=== PATIENT | female | born 2000 | race Caucasian/White ===

== ENCOUNTER 2022-02-20 12:26 | Emergency (ER) | payer BC, SELFPAY ==
[2022-02-20 13:05] VITALS: BP 127/81; PULSE 59; RESP 16; TEMP 37.4; O2SAT 98
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
[2022-02-20 16:47] LABS: Basophils % 0.4 %; Hematocrit 43.2 % (37.0-47.0); Hemoglobin 14.4 g/dL (11.5-15.3); Lymphocytes # 1.7 10^3/uL (0.8-4.8); Lymphocytes % 21.4 %; Mean Corpuscular HGB Conc 33.3 g/dL (30.0-36.0); Mean Corpuscular Hemoglobin 31.9 pg (28.0-34.0); Mean Corpuscular Volume 95.8 fl (81-99); Mean Platelet Volume 10.2 fL (7.4-10.4); Monocytes # 0.6 10^3/uL (0.2-0.9); Monocytes % 7.3 %; Neutrophils # 5.64 10^3/uL (1.8-7.7); Neutrophils % 70.6 %; Nucleated Red Blood Cells % 0 %; Platelet Count 224 10^3/cmm (130-400); Red Blood Count 4.51 10^6/uL (4.1-5.3); Red Cell Distribution Width 11.9 % (12.1-15.1)
--- NOTE | 2022-02-20 17:25 | PC.NURSE ---
ATTEMPTED TO ADM MEDICATION PT IS NO LONGER IN ROOM.
[2022-02-20 17:39] LABS: Alanine Aminotransferase 9 U/L (0-33); Albumin Level 4.4 g/dL (3.5-5.2); Alkaline Phosphatase 57 U/L (35-105); Anion Gap 16.3 (5-19); Aspartate Amino Transferase 9 U/L (0-32); Blood Urea Nitrogen 10 mg/dL (6-20); Calcium 9.5 mg/dL (8.5-10.5); Carbon Dioxide 25 mmol/L (22-29); Chloride 106 mmol/L (98-107); Globulin 3.2 g/dL (1.3-4.6); Glomerular Filtration Rate 123.9 mL/min (90-130); Glucose 80 mg/dL (65-115); Osmolality Calculated 294 mOsm/kg (285-295); Potassium 4.3 mmol/L (3.5-5.1); Sodium 143 mmol/L (136-145); Thyroid Stimulating Hormone 1.63 uIU/mL (0.27-4.20); Total Bilirubin 0.6 mg/dL (0.15-1.2); Total Protein 7.6 g/dL (6.6-8.7)
== END 2022-02-20 17:33 | disposition left against medical advice (07) ==
PROVIDERS: Nurse Practitioner Family; Emergency Provider Nurse Practitioner Family
DX: F41.9 Anxiety disorder, unspecified (principal); Z53.21 Procedure and treatment not carried out due to patient leaving prior to being seen by health care provider
CPT/HCPCS: 36415; 80053; 84443; 85025

== ENCOUNTER → 2023-05-28 15:01 | Outpatient (BNVA) | payer BC, SELFPAY | PROVIDERS: Visit Provider Family Medicine | DX: M54.2 Cervicalgia (principal); G89.29 Other chronic pain | CPT/HCPCS: 80053; 84443; 85025; 85651; 86140 ==

== ENCOUNTER → 2024-01-02 13:30 | Outpatient (BNVA) | payer BC, SELFPAY | PROVIDERS: Visit Provider Family Medicine | DX: Z01.818 Encounter for other preprocedural examination (principal); M25.512 Pain in left shoulder | CPT/HCPCS: 80048; 81025; 85025 ==

== ENCOUNTER 2024-02-10 06:00 | Outpatient (RCR) | payer BC, SELFPAY | END 2024-02-29 23:59 | disposition home or self-care (01) | LOC: MPT 06:00 | PROVIDERS: Visit Provider Orthopaedic Surgery | DX: Z98.890 Other specified postprocedural states (principal) | CPT/HCPCS: 97110; 97140; 97161 ==

== ENCOUNTER 2024-03-01 06:00 | Outpatient (RCR) | payer BC, SELFPAY | END 2024-03-31 23:59 | disposition home or self-care (01) | LOC: MPT 06:00 | PROVIDERS: Visit Provider Orthopaedic Surgery | DX: Z98.890 Other specified postprocedural states (principal) | CPT/HCPCS: 97110; 97140 ==

== ENCOUNTER 2024-04-01 06:30 | Outpatient (RCR) | payer BC, SELFPAY | END 2024-05-01 23:59 | disposition home or self-care (01) | LOC: MPT 06:30 | PROVIDERS: Visit Provider Orthopaedic Surgery | DX: Z98.890 Other specified postprocedural states (principal) | CPT/HCPCS: 97110; 97140 ==

== ENCOUNTER → 2024-04-29 16:15 | Outpatient (BNVA) | payer BC, SELFPAY | PROVIDERS: Visit Provider Nurse Practitioner | DX: R05.9 Cough, unspecified (principal) | CPT/HCPCS: 87400; 87426 ==

== ENCOUNTER 2024-09-29 05:00 | Outpatient (RCR) | payer OTHER, SELFPAY | END 2024-10-29 23:59 | disposition home or self-care (01) | LOC: MPT 05:00 | PROVIDERS: Visit Provider Orthopaedic Surgery | DX: M75.02 Adhesive capsulitis of left shoulder (principal) | CPT/HCPCS: 97110; 97140; 97161; G0283 ==

== ENCOUNTER 2024-10-30 04:00 | Outpatient (RCR) | payer OTHER, SELFPAY | END 2024-11-29 23:59 | disposition home or self-care (01) | LOC: MPT 04:00 | PROVIDERS: Visit Provider Orthopaedic Surgery | DX: M75.02 Adhesive capsulitis of left shoulder (principal) | CPT/HCPCS: 97110; 97140 ==

== ENCOUNTER 2024-11-23 18:20 | Emergency (ER) | payer BC, MEDICAID, SELFPAY ==
[2024-11-23 18:27] VITALS: BP 155/77; PULSE 78; RESP 17; TEMP 36.7; O2SAT 100; BMI 24.7
--- OUTSIDE RECORDS SUMMARY | 2024-11-23 18:32 | XMS_ITS | Clinical Summary ---
Author Organization [facility] [employer] Address [address] [place] [address] Care Team Providers Care Assistant Engineer Name Role Phone None, Physician Primary Care Provider Unavailabl e Source Comments [facility] [employer],non-owned Affiliates and Associated Physician Practices is amultiple site organization consisting of ambulatory clinics and hospital sitesin [place], [place], [place] and [place]. This disclosure is being madepursuant to the Care Everywhere program and may not contain all information available regarding this patient. Last updated 17.[facility] [employer] Allergies Active Allergy Reactions Criticality Noted Date Comments Cefdinir Urticaria Medium 09/16/2023 Medications * Be aware that medications may not be up to date on this document. Alwaysverify current medications with the patient. clonazePAM (KlonoPIN) 0.5 MG tablet Take 1 (one) tablet by mouth 3 times daily 4 Active onabotulinumtoxin A (Botox) 200 units injectionIndicati ons:Axillary Hyperhidrosis 200 (two hundred) Units by Intradermal route Every 90 days As needed for excessive sweating. Injections to be performed in providers office. 200 units needed for efficacy and duration. Reasons: Excessive or Profuse Sweating From the Armpits 1 Each 3 5 Active Active Problems Problem Noted Date Diagnosed Date Primary focal hyperhidrosis, unspecified 024 Encounters Date Type Department Care Team Description 10/14/2024 Coordination of Care Telephone [facility] - Cosmetic Dermatology [address] [place] [address] Anny Coppola [employer]PORTS DEVELOPER-TOP CLEANER 09/23/2024 Telephone [facility] - Cosmetic Dermatology [address], [address] [place] [address] Anny Coppola, [employer] RE[employer] DEVELOPER-TOP CLEANER Hyperhidrosis from Last 3 Months Family History Medical History Relation Name Comments Cancer - Skin, Non Melanoma Father Cancer - Skin, Melanoma Neg Hx Relation Name Status Comments Father Social History Tobacco Use Types Packs/Day Years Used Date Smoking Tobacco: Never Smokeless Tobacco: Never Tobacco Cessation:Counseling Given: Not Answered Alcohol Use Standard Drinks/Week Comments Not Currently 0 (1 standard drink = 0.6 oz pur e alcohol) rarely Comments Unknown Sex and Gender Information Value Date Recorded Sex Assigned at Not on file Legal Sex Female 1:06 PM CDT Gender Identity Not on file Sexual Orientation Not on file Plan of Treatment Health Maintenance Due Date Last Done Comments HIV SCREENING 2013 HPV VACCINE (1 - 3-dose series) 2013 HEPATITIS C SCREENING 04/03/2016 DTAP/TDAP/TD VACCINES (1 - Tdap) 2017 HEPATITIS B VACCINE (1 of 3 - 19+ 3-dose series) 2017 PAP SMEAR 2019 COVID-19 VACCINE (1 - 2023-2 5 season) 2023 DEPRESSION SCREENING 04/01/2024 INFLUENZA VACCINE (#1) 2024 ZOSTER VACCINE (1 of 2) 2048 HIB VACCINE Aged Out No longer eligi ble based on patient's age to complete this topic MENINGOCOCCAL (Group B) VACC INE SHARED DECISION-MAKING Aged Out No longer eligibl e based on patient's age to complete this topic MENINGOCOCCAL GROUPS A/C/Y/W VACCINE Aged Out No longer eligible b ased on patient's age to complete this topic PNEUMOCOCCAL VACCINE Aged Out No long er eligible based on patient's age to complete this topic Insurance MEDICAID RENE ROUSSEAU Care Teams Assistant Engineer Relationship Specialty Start Date End Date None, Physician [address] [place] [address] PCP - General 10/28/23
--- OUTSIDE RECORDS SUMMARY | 2024-11-23 18:32 | XMS_ITS | Encounter Summary ---
Author Organization [facility] Address [address] [place] [address] Care Team Providers Care Unemployment Insurance Director Name Role Phone None, Physician Primary Care Provider Unavailabl e Encounter Details Date Type Department Care Team (Late st Contact Info) Description 09/17/2023 Telephone [facility] - Dermatology [address] [place] [id number] Genia Barnhart MD [address] [facility] [place] [address] Social History Tobacco Use Types Packs/Day Years Used Date Smoking Tobacco: Never Assessed Comments Unknown Sex and Gender Information Value Date Recorded Sex Assigned at Not on file Legal Sex Female 1:06 PM CDT Gender Identity Not on file Sexual Orientation Not on file documented as of this encounter Plan of Treatment Not on file documented as of this encounter Visit Diagnoses Not on filedocumented in this encounter Care Teams Unemployment Insurance Director Relationship Specialty Start Date End Date None, Physician [facility] [place] [address] PCP - General 10/28/23 documented as of this encounter
--- OUTSIDE RECORDS SUMMARY | 2024-11-23 18:32 | XMS_ITS | Encounter Summary ---
Author Organization [facility] Address [address] [place] [address] Care Team Providers Care Grinder Operator Surface Tool Name Role Phone None, Physician Primary Care Provider Unavailabl e Encounter Details Date Type Department Care Team (Late st Contact Info) Description 10/23/2023 Telephone [facility] - Dermatology [address] [place] [phone] None, Physician [address] [place] [address] Social History Tobacco Use Types Packs/Day Years Used Date Smoking Tobacco: Never Assessed Comments Unknown Sex and Gender Information Value Date Recorded Sex Assigned at Not on file Legal Sex Female 1:06 PM CDT Gender Identity Not on file Sexual Orientation Not on file documented as of this encounter Miscellaneous Notes * Telephone Encounter - Stanton Ramsay - 10/23/2023 11:06 AM CDT Contact [facility]. Rep Sukhi Darby (Rep # [id number]). Rep informed me that medication (Botox) does not need authorization. Medication sent to location. Pt will be informed when med arrives. documented in this encounter Plan of Treatment Not on file documented as of this encounter Visit Diagnoses Not on filedocumented in this encounter Care Teams Grinder Operator Surface Tool Relationship Specialty Start Date End Date None, Physician [address] [place] [address] PCP - General 10/28/23 documented as of this encounter
--- NOTE | 2024-11-23 18:35 | W.ED.ABDPA2 ---
HPI - Abdominal Pain General: Chief Complaint: Abdominal Pain Stated Complaint: Gall Bladder Problems Time Seen by Provider: 11/23/24 18:32 History of Present Illness: Patient is a 24-year-old female with history of gallbladder attacks reports ED with 3 days of nausea, vomiting, right upper quadrant pain, radiates to right shoulder and hip. Pain is sharp and stabbing in nature in the right upper quadrant. This is worse than normal. She did have an ultrasound scheduled at [facility] in [facility] days, however the pain was so severe and unable to hold down any intake. No antiemetics. No fevers. No shortness of breath. No alcohol intake yesterday, and does not really consume alcohol. Patient then relates that prior to arrival, she obtained chili, and half a chicken sandwich at [employer]. Associated Symptoms: Reports nausea and vomiting; Denies chills and fever(s) Related Data Previous Rx's ?Medication ?Instructions ?Recorded diclofenac sodium 1 % topical gel 4 g topical QID PRN pain #100 grams 08/06/23 (Voltaren Arthritis Pain) lidocaine 5 % topical patch 3 patch topical DAILY #90 ea 08/28/23 albuterol sulfate 90 mcg/actuation 2 puff inhalation Q6H PRN 04/29/24 aerosol inhaler shortness of breath or wheezing #8.5 grams metformin 500 mg tablet 500 mg PO DAILY 30 days #30 tabs 06/25/24 clonazepam 0.5 mg tablet 0.5 mg PO BID PRN anxiety 30 days 07/17/24 #60 tabs ciprofloxacin HCl 500 mg tablet 500 mg PO Q8H 10 days #30 tabs 11/23/24 Allergies Allergy/AdvReac Type Severity Reaction Status Date / Time azithromycin (From Zithromax Allergy ALGY-Hives Verified 11/23/24 18:30 Z-Francisco Javier) cefdinir (From Omnicef) Allergy ALGY-Hives Verified 11/23/24 18:30 Review of Systems General: Reports: 10 or more systems reviewed and unremarkable except in HPI and below Const: Reports: change in appetite and fatigue; Denies: fever(s) or chills Eyes: Denies: change in vision or blurry vision ENMT: Denies: throat pain or mouth pain Card: Denies: chest pain or palpitations Resp: Denies: dyspnea or non-productive cough GI: Reports: abdominal pain, nausea and vomiting : Denies: flank pain, difficulty voiding, urinary urgency or urinary hesitancy Musc: Denies: neck pain, back pain or extremity pain Skin/Breast: Denies: rash or pruritus Neuro: Denies: headache(s) or numbness in extremities Psych: Denies: anxiety or depression PFS ED PFSH: Medical History (Updated 11/23/24 @ 21:32 by KEVIN Cheng) Factor V Leiden PCOS (polycystic ovarian syndrome) Social History Smoking and tobacco/nicotine status: never used tobacco/nicotine Second hand smoke exposure: Yes Alcohol intake: current Alcohol intake frequency: holidays/special occasions only Alcohol type: other Substance/Drug Use: never Adopted: No Caregiver/support person: No Household members: none Housing: Apartment Marital status: Single Number of children: 0 Highest education level completed: High School Graduate service: No Current occupational status: employed Current occupational exposures/hazards: No Pets and animals: Yes Leisure activites: volunteer work Sexually active: Yes Do you think of yourself as: Straight/Heterosexual Current gender identity: Female Special luis antonio needs: No Agree to transfusion: Yes Female Reproductive History: Spontaneous abortions: No Physical Exam Const: COMMON NORMALS: no acute distress, average body habitus and patient oriented x3 HENMT: COMMON NORMALS: normocephalic and atraumatic HEAD & SCALP: normocephalic and atraumatic Lymph: LYMPHATIC: no lymphadenopathy noted Chest: COMMONS NORMALS: normal inspection of the chest, normal palpation of entire chest wall and normal palpation of the breasts BREAST/AXILLA PALPATION: Yes normal palpation of the breasts Resp: COMMON NORMALS: normal respiratory effort, No retractions and clear to auscultation bilaterally AUSCULTATION: clear to auscultation bilaterally Cardio: COMMON NORMALS: regular rate and regular rhythm RATE: regular rate RHYTHM: regular rhythm GI: COMMON NORMALS: Normal to inspection, nondistended, normoactive bowel sounds present, Soft to palpation and non-tender PALPATION: Yes Soft to palpation : COMMON NORMALS: Yes no CVA tenderness BLADDER/KIDNEY EXAM: Yes no CVA tenderness Back/Pelvis: COMMON NORMALS: no CVA tenderness Extremity: COMMON NORMALS: normal to inspection, full ROM and capillary refill normal Neuro: COMMON NORMALS: patient oriented x3 Psych: COMMON NORMALS: mental status grossly normal, Normal thought process present, cooperative and normal affect THOUGHT PROCESS: Normal thought process present Course Vital Signs: Vital signs: Vital Signs Temperature 98.1 F 11/23/24 18:27 Pulse Rate 82 11/23/24 23:09 Respiratory Rate 17 11/23/24 18:27 Blood Pressure 130/66 11/23/24 23:09 Pulse Oximetry 100 11/23/24 23:09 Oxygen Delivery Me thod Room Air 11/23/24 18:27 MDM - Abdominal Pain Medical Decision Making Patient is a 24-year-old female, presents to the emergency room with 3 days of increasing pain to right upper quadrant. She was awaiting ultrasound with [facility] for questionable cholecystitis. She had throbbing stabbing pain. Laboratory data, is supportive of UTI. CT shows ill-defined lesion of the right mid to upper kidney measuring up to 17 mm consider nonemergent MR renal lesion protocol for further characterization. This can be done on an outpatient basis. Lab Data 11/23/24 18:40 11/23/24 18:40 Labs/Radiology: Radiology Impressions Gallbladder Ultrasound 11/23/24 18:54 IMPRESSION: No acute findings. Abdomen/Pelvis CT 11/23/24 20:00 IMPRESSION: 1. Ill-defined lesion of the right mid to upper kidney, measuring up to 17 mm, consider nonurgent MR renal lesion protocol for further characterization. 2. Enlarged left adnexa up to 3.8 cm with ring enhancing structure suggesting possible corpus luteal cyst. Trace dependent free fluid in the pelvis, possibly physiologic although could be related to ruptured cyst. Consider ultrasound for further characterization. COMMENTS: Consistent with the [employer]'s Incidental Findings Committee white paper (J Am Claus Radiol 2018): Any incidental renal lesion less than 1 cm or classified as too small to characterize, or any incidental cystic renal lesion characterized as simple-appearing, is likely benign. No follow-up imaging is recommended for these lesions per consensus recommendations based on imaging criteria. Laboratory Results WBC 7.97 10^3/uL (3.29-11.43) 11/23/24 18:40 RBC 4.21 10^6/uL (3.85-5.65) 11/23/24 18:40 Hgb 12.90 g/dL (11.27-16.99) 11/23/24 18:40 Hct 40.4 % (36-47) 11/23/24 18:40 MCV 96.0 fl (85-98) 11/23/24 18:40 MCH 30.6 pg (27-33) 11/23/24 18:40 MCHC 31.9 g/dL (30-55) 11/23/24 18:40 RDW 12.3 % (12.1-15.1) 11/23/24 18:40 Plt Count 253 10^3/cmm (157-399) 11/23/24 18:40 MPV 9.5 fL (7.4-10.4) 11/23/24 18:40 Neut % (Auto) 64.2 % 11/23/24 18:40 Lymph % (Auto) 20.3 % 11/23/24 18:40 [place] % (Auto) 14.1 % 11/23/24 18:40 Eos % (Auto) 1.0 % 11/23/24 18:40 Baso % (Auto) 0.3 % 11/23/24 18:40 Neut # (Auto) 5.12 10^3/uL (1.8-7.7) 11/23/24 18:40 Lymph # (Auto) 1.6 10^3/uL (0.8-4.8) 11/23/24 18:40 [place] # (Auto) 1.1 10^3/uL (0.2-0.9) H 11/23/24 18:40 Eos # (Auto) 0.1 10^3/uL (0.0-0.8) 11/23/24 18:40 Baso # (Auto) 0.0 10^3/uL (0.0-0.1) 11/23/24 18:40 Nucleated RBC % (auto) 0 % 11/23/24 18:40 Nucleated RBCs # 0.0 /100WBC 11/23/24 18:40 Sodium 139 mmol/L (136-145) 11/23/24 18:40 Potassium 3.7 mmol/L (3.5-5.1) 11/23/24 18:40 Chloride 102 mmol/L (98-107) 11/23/24 18:40 Carbon Dioxide 27 mmol/L (22-29) 11/23/24 18:40 Anion Gap 13.7 (5-19) 11/23/24 18:40 BUN 8 mg/dL (6-20) 11/23/24 18:40 Creatinine 0.6 mg/dL (0.5-0.9) 11/23/24 18:40 GFR Calculation 120.8 mL/min (90-130) 11/23/24 18:40 Glucose 60 mg/dL (65-115) L 11/23/24 18:40 POC Glucose 81 mg/dL (70-110) 11/23/24 20:21 Calculated Osmolality 284 mOsm/kg (285-295) L 11/23/24 18:40 Lactic Acid 1.6 mmol/L (0.5-2.2) 11/23/24 18:40 Calcium 8.8 mg/dL (8.5-10.5) 11/23/24 18:40 Total Bilirubin 0.3 mg/dL (0.15-1.2) 11/23/24 18:40 AST 11 U/L (0-32) 11/23/24 18:40 ALT 10 U/L (0-33) 11/23/24 18:40 Alkaline Phosphatase 62 U/L (35-105) 11/23/24 18:40 Total Protein 7.4 g/dL (6.6-8.7) 11/23/24 18:40 Albumin 4.1 g/dL (3.5-5.2) 11/23/24 18:40 Globulin 3.3 g/dL (1.3-4.6) 11/23/24 18:40 Lipase 22 U/L (13-60) 11/23/24 18:40 HCG, Qual Negative (Negative) 11/23/24 20:17 Urine Color Yellow (Yellow) 11/23/24 20:17 Urine Appearance Cloudy (CLEAR) A 11/23/24 20:17 Urine pH 6.5 (5-7) 11/23/24 20:17 Ur Specific [place] 1.015 (1.005-1.030) 11/23/24 20:17 Urine Protein Negative (Negative) 11/23/24 20:17 Urine Glucose (UA) Negative (Normal) 11/23/24 20:17 Urine Ketones Trace (Negative) 11/23/24 20:17 Urine Blood Negative (Negative) 11/23/24 20:17 Urine Nitrate Negative (Negative) 11/23/24 20:17 Urine Bilirubin Negative (Negative) 11/23/24 20:17 Urine Urobilinogen 2.0 mg/dL (Negative) H 11/23/24 20:17 Ur Leukocyte Esterase 2+ (Negative) A 11/23/24 20:17 Urine RBC 0-2 /hpf (0-2) 11/23/24 20:17 Urine WBC 21-50 /hpf (0-5) H 11/23/24 20:17 Ur Squamous Epith Cells 0-5 /hpf (0-5) 11/23/24 20:17 Amorphous Sediment Not Reportable 11/23/24 20:17 Urine Bacteria 4+ /hpf (NONE) H 11/23/24 20:17 Hyaline Casts 1.21 /lpf 11/23/24 20:17 All radiology interpretation(s) finalized by discharge Discharge Plan Discharge Patient Disposition: Home Clinical Impression: Pyuria, Lesion of right [place] kidney Condition: Stable Prescriptions: New ciprofloxacin HCl 500 mg tablet 500 mg PO Q8H 10 Days Qty: 30 0RF No Action lidocaine 5 % adhesive patch,medicated 3 patch topical DAILY Qty: 90 11RF Rx Instructions: leave on most painful area for up to 12 hrs albuterol sulfate 90 mcg/actuation HFA aerosol inhaler 2 puff inhalation Q6H PRN (Reason: shortness of breath or wheezing) Qty: 8.5 0RF metformin 500 mg tablet 500 mg PO DAILY 30 Days Qty: 30 5RF diclofenac sodium [Voltaren Arthritis Pain] 1 % gel 4 g topical QID PRN (Reason: pain) Qty: 100 0RF Rx Instructions: to neck clonazepam 0.5 mg tablet 0.5 mg PO BID PRN (Reason: anxiety) 30 Days Qty: 60 0RF Rx Instructions: Please allow reyes pay Discharge Orders: Discharge ED (Routine); Ordered 11/23/24 Ordered By: Deborah Mckenzie Discharge Diet: Clear Liquid Patient Instructions: Urinary Tract Infection in Women (ED), Patient Portal & K[facility]on Instructions Activity Restrictions/Additional Instructions: Your antibiotics were sent to the pharmacy. You have had your antibiotics today, however this will need to be obtained early in the morning and taken 3 times a day. Take probiotic or active culture yogurt to avoid infectious diarrhea. You have a incidental finding of 17 mm lesion of the right mid to upper kidney that is recommended for nonemergent MRI through your primary care. Please return to ED with worsening pain, temperature greater 100.4 ?F. You will need to follow-up with your primary care physician regarding the nonemergent MRI, as well as today's visit, and any further discovery with your right upper quadrant pain as we discussed and any additional testing as they would need to order this. Print Language: Burkinan Coding Level of Care Code ED Cost Control Specialist for Jamin Danielle
[2024-11-23 18:45] LABS: Hematocrit 40.4 % (36-47); Hemoglobin 12.90 g/dL (11.27-16.99); Mean Corpuscular HGB Conc 31.9 g/dL (30-55); Mean Corpuscular Hemoglobin 30.6 pg (27-33); Mean Corpuscular Volume 96.0 fl (85-98); Nucleated Red Blood Cells % 0 %; Platelet Count 253 10^3/cmm (157-399); Red Blood Count 4.21 10^6/uL (3.85-5.65); White Blood Count 7.97 10^3/uL (3.29-11.43)
[2024-11-23] MEDS: orphenadrine 30 mg/mL Inj 2 mL 60 MG IV (18:49)
[2024-11-23] MEDS: ondansetron 2 mg/ML SDV 2 mL 4 MG IVP (18:49)
--- NOTE | 2024-11-23 18:54 | USR_ITS ---
PROCEDURE INFORMATION: Exam: US Abdomen, Limited; Right Upper Quadrant Exam date and time: 11/23/2024 7:35 PM Age: 24 years old Clinical indication: Abdominal pain; Epigastric; Additional info: Positive orlando's, right upper quadrant abdominal pain TECHNIQUE: Imaging protocol: Real time ultrasound of the abdomen with image documentation. Limited exam focused on the right upper quadrant. COMPARISON: No relevant prior studies available. FINDINGS: Liver: Normal. No masses. Gallbladder: Normal. No gallstones. There is no gallbladder wall thickening. Biliary ducts: Normal. No stones. No dilation. Pancreas: Visualized pancreas is unremarkable. Right kidney: Normal. No mass. No hydronephrosis. US/US gall bladder [id number] IMPRESSION: No acute findings.
[2024-11-23] MEDS: LORazepam 1 MG/0.5 ML injection 0.5 MG IVP (18:58)
[2024-11-23 19:06] LABS: Alanine Aminotransferase 10 U/L (0-33); Albumin Level 4.1 g/dL (3.5-5.2); Alkaline Phosphatase 62 U/L (35-105); Anion Gap 13.7 (5-19); Aspartate Amino Transferase 11 U/L (0-32); Blood Urea Nitrogen 8 mg/dL (6-20); Calcium 8.8 mg/dL (8.5-10.5); Carbon Dioxide 27 mmol/L (22-29); Chloride 102 mmol/L (98-107); Creatinine Clr Calc Pharmacy 132.2209; Globulin 3.3 g/dL (1.3-4.6); Glucose 60 mg/dL (65-115); Lipase 22 U/L (13-60); Osmolality Calculated 284 mOsm/kg (285-295); Potassium 3.7 mmol/L (3.5-5.1); Sodium 139 mmol/L (136-145); Total Protein 7.4 g/dL (6.6-8.7)
[2024-11-23 19:07] LABS: Lactic Sepsis W/Reflex 1.6 mmol/L (0.5-2.2)
--- NOTE | 2024-11-23 20:00 | CTR_ITS ---
PROCEDURE INFORMATION: Exam: CT Abdomen And Pelvis With Contrast Exam date and time: 11/23/2024 8:32 PM Age: 24 years old Clinical indication: Abdominal pain; Localized; Right upper quadrant (ruq); C/O ruq pain. Negative gb ultrasound. TECHNIQUE: Imaging protocol: Computed tomography of the abdomen and pelvis with contrast. Radiation optimization: All CT scans at this facility use at least one of these dose optimization techniques: automated exposure control; mA and/or kV adjustment per patient size (includes targeted exams where dose is matched to clinical indication); or iterative reconstruction. Contrast material: OMNI 350; Contrast volume: 100 ml; Contrast route: INTRAVENOUS (IV); COMPARISON: US gall bladder [id number] 11/23/2024 7:35 PM RADIATION DOSE METRICS: Total DLP (mGy-cm): 458.03 FINDINGS: Liver: Normal. No mass. Gallbladder and biliary ducts: Normal. No calcified stones. No ductal dilation. Pancreas: Normal. No ductal dilation. Spleen: Normal. No splenomegaly. Adrenal glands: Normal. No mass. Kidneys and ureters: Ill-defined lesion of the right mid to upper kidney, measuring up to 17 mm, consider nonurgent MR renal lesion protocol for further characterization. Stomach and bowel: Unremarkable. No obstruction. No mucosal thickening. Appendix: No evidence of appendicitis. Intraperitoneal space: See Reproductive finding. Vasculature: Unremarkable. No abdominal aortic aneurysm. Lymph nodes: Unremarkable. No enlarged lymph nodes. Urinary bladder: Unremarkable as visualized. Reproductive: Enlarged left adnexa up to 3.8 cm with ring enhancing structure suggesting possible corpus luteal cyst. Trace dependent free fluid in the pelvis, possibly physiologic although could be related to ruptured cyst. Consider ultrasound for further characterization. Bones/joints: Unremarkable. No acute fracture. Soft tissues: Unremarkable. CT/CT abdomen pelvis w con* [id number] IMPRESSION: 1. Ill-defined lesion of the right mid to upper kidney, measuring up to 17 mm, consider nonurgent MR renal lesion protocol for further characterization. 2. Enlarged left adnexa up to 3.8 cm with ring enhancing structure suggesting possible corpus luteal cyst. Trace dependent free fluid in the pelvis, possibly physiologic although could be related to ruptured cyst. Consider ultrasound for further characterization. COMMENTS: Consistent with the [employer]'s Incidental Findings Committee white paper (J Am Claus Radiol 2018): Any incidental renal lesion less than 1 cm or classified as too small to characterize, or any incidental cystic renal lesion characterized as simple-appearing, is likely benign. No follow-up imaging is recommended for these lesions per consensus recommendations based on imaging criteria.
[2024-11-23 20:25] LABS: Glucose Urine UA Negative (Normal); Nitrate Urine Negative (Negative); Specific Gravity, Urine 1.015 (1.005-1.030)
[2024-11-23 20:27] LABS: HCG Qualitative Urine. Negative (Negative)
[2024-11-23 20:30] LABS: Add Urine Microscopic? YES
[2024-11-23] MEDS: iohexol 350 mg/mL 500 mL Btl (per mL) IV (20:39)
[2024-11-23] MEDS: piperacillin-tazobactam 4.5 GM in sodium chloride 0.9% (plus) 50 ML IV (20:59)
[2024-11-23 21:03] VITALS: BP 94/64; PULSE 74; O2SAT 100
[2024-11-23 22:00] VITALS: BP 100/69; PULSE 2; O2SAT 100
[2024-11-23 23:09] VITALS: BP 130/66; PULSE 82; O2SAT 100
== END 2024-11-23 22:55 | disposition home or self-care (01) ==
PROVIDERS: Emergency Provider Physician Assistant
DX: R82.81 Pyuria (principal); N28.9 Disorder of kidney and ureter, unspecified; Z79.84 Long term (current) use of oral hypoglycemic drugs
CPT/HCPCS: 36416; 74177; 76705; 80053; 81001; 81025; 82962; 83605; 83690; 85025; 87077; 87086; 87186; 96365; 96375; 99285; J1885; J2060; J2360; J2405; J2543; J7030; J7799

== ENCOUNTER 2024-11-30 05:00 | Outpatient (RCR) | payer OTHER, SELFPAY | END 2024-12-29 23:59 | disposition home or self-care (01) | LOC: MPT 05:00 | PROVIDERS: Visit Provider Orthopaedic Surgery | DX: M75.02 Adhesive capsulitis of left shoulder (principal) | CPT/HCPCS: 97110 ==

== ENCOUNTER 2025-01-28 14:33 | Outpatient (RCR) | payer OTHER, SELFPAY | END 2025-01-29 23:59 | disposition home or self-care (01) | LOC: MPT 14:33 | PROVIDERS: Visit Provider Orthopaedic Surgery | DX: M25.312 Other instability, left shoulder (principal) | CPT/HCPCS: 97110; 97140; 97162 ==

== ENCOUNTER 2025-02-15 14:31 | Outpatient (RCR) | payer OTHER, SELFPAY | END 2025-02-28 23:59 | disposition home or self-care (01) | LOC: MPT 14:31 | PROVIDERS: Visit Provider Orthopaedic Surgery | DX: M25.312 Other instability, left shoulder (principal) | CPT/HCPCS: 97110; 97140; G0283 ==

== ENCOUNTER 2025-03-01 05:00 | Outpatient (RCR) | payer OTHER, SELFPAY | END 2025-03-31 23:59 | disposition home or self-care (01) | LOC: SPT 05:00 | PROVIDERS: Visit Provider Orthopaedic Surgery | DX: M25.312 Other instability, left shoulder (principal) | CPT/HCPCS: 97750 ==